=== PATIENT | female | born 1990 | race Caucasian/White ===

== ENCOUNTER 2017-09-26 19:18 | Emergency (ER) | payer MEDICAID ==
[2017-09-26 22:13] LABS: URINE PH (Dip) POC 6.5 (5.0-8.5)
[2017-09-26 22:13] LABS: URINE BLOOD (Dip) POC Negative (NEGATIVE); URINE GLUCOSE (Dip) POC Negative (NEGATIVE); URINE KETONES (Dip) POC Negative (NEGATIVE); URINE LEUKOCYTE EST (Dip) POC Trace (NEGATIVE); URINE NITRITE (Dip) POC Negative (NEGATIVE); URINE TOTAL PROTEIN POC Negative (NEGATIVE)
[2017-09-26] MEDS: ACETAMINOPHEN 325 MG TAB PO (22:15)
== END 2017-09-26 22:57 | disposition home or self-care (01) ==
LOC: FTE 19:18
DX: R30.0 Dysuria (principal)
CPT/HCPCS: 81003; 81025; 99283